=== PATIENT | female | born 1970 | race African-American/Black ===

== ENCOUNTER 2023-07-23 22:43 | Emergency (ER) | payer SELFPAY ==
[~2023-07-23] VITALS: Ht 167.6 cm; Wt 100.0 kg
[2023-07-23 22:44] VITALS: O2SAT 97
[2023-07-24 00:54] LABS: BASOPHILS % 0.4 % (0.0-2.0); EOSINOPHILS % 4.5 % (0.0-5.0); HEMATOCRIT. 37.4 % (36.0-48.0); LYMPHOCYTES % 39.3 % (20.0-50.0); MEAN CORPUSCULAR HEMOGLOBIN 26.6 pg (28.0-32.0); MEAN CORPUSCULAR HGB CONC 32.1 g/dL (31.0-37.0); MEAN CORPUSCULAR VOLUME 82.7 fL (81.0-99.0); MEAN PLATELET VOLUME 8.5 fl (7.4-10.4); MONOCYTES % 10.3 % (2.0-8.0); NEUTROPHILS % 45.5 % (40.0-76.0); PLATELET 228 x1000/uL (130-400); RED BLOOD CELL COUNT 4.52 mill/uL (4.2-5.4); RED CELL DISTRIBUTION WIDTH 13.6 % (11.6-14.6); WHITE BLOOD COUNT 5.6 x1000/uL (4.5-11.0)
[2023-07-24 01:07] LABS: CHLORIDE 111 mEq/L (98-107); INDEX HEMOLYSI 1 (1-3); INDEX ICTERIC 1 (1-4); INDEX LIPEMIC 1 (1-3); POTASSIUM 3.4 mEq/L (3.5-5.1); SODIUM 143 mEq/L (136-145)
[2023-07-24 01:14] LABS: AMMONIA 29 uMol/L (<32)
[2023-07-24] MEDS ORDERED: ACETAMINOPHEN 500MG TABLET PO NR (01:15)
[2023-07-24 01:16] LABS: ACETAMINOPHEN <2 ug/mL ug/mL (10-30); ALANINE AMINOTRANSFERASE 26 IU/L (13-61); ALBUMIN 3.8 g/dL (3.4-5.0); ASPARTATE AMINOTRANSFERASE 20 IU/L (15-37); BILIRUBIN TOTAL 0.1 mg/dL (0.1-1.0); CALCIUM 8.9 mg/dL (8.5-10.1); CARBON DIOXIDE 24 mEq/L (21-32); CREATININE 0.9 mg/dL (0.6-1.3); ETHANOL BLOOD 157 mg/dL (<10); GLUCOSE 93 mg/dL (70-105); LACTIC ACID 2.6 mmol/L (0.4-2.0); PROTEIN TOTAL 8.3 g/dL (6.0-8.3); UREA NITROGEN BLOOD 14 mg/dL (7-21)
[2023-07-24 05:39] LABS: CLARITY URINE CLOUDY (CLEAR); COLOR URINE YELLOW (YELLOW); PH URINE 5.5 (4.5-8.0); SPECIFIC GRAVITY URINE 1.014 (1.005-1.030)
[2023-07-24 05:40] LABS: GLUCOSE URINE NEGATIVE (NEGATIVE); KETONES URINE NEGATIVE (NEGATIVE); LEUKOCYTE ESTERASE URINE 2+ (NEGATIVE); NITRITE URINE NEGATIVE (NEGATIVE); OCCULT BLOOD URINE NEGATIVE (NEGATIVE); PROTEIN URINE NEGATIVE (NEGATIVE); UROBILINOGEN URINE 0.2 E.U./dL (0.2-1.0)
[2023-07-24 05:49] LABS: SQUAMOUS EPITHELIAL CELL URINE 1+ /lpf (RARE/1+)
[2023-07-24 05:51] LABS: RBC URINE 0-2 /hpf (0-2)
[2023-07-24 05:53] LABS: BACTERIA URINE 1+
[2023-07-24 05:58] LABS: *AMPHETAMINES SCREEN URINE NEGATIVE (NEGATIVE); *BARBITURATES SCREEN URINE NEGATIVE (NEGATIVE); *BENZODIAZEPINES SCREEN URINE NEGATIVE (NEGATIVE); *COCAINE SCREEN URINE NEGATIVE (NEGATIVE); CANNABINOID URINE SCREEN NEGATIVE (NEGATIVE); ECSTASY MDMA SCREEN URINE NEGATIVE (NEGATIVE); OPIATES URINE SCREEN NEGATIVE (NEGATIVE); PHENCYCLIDINE URINE SCREEN NEGATIVE (NEGATIVE)
[2023-07-24] MEDS ORDERED: KETOROLAC 15MG/ML VIAL IV ONE (06:00)
[2023-07-24] MEDS ORDERED: ONDANSETRON HCL 4MG/2ML INJ IV ONE (06:00)
[2023-07-24] MEDS ORDERED: KETOROLAC 30MG/ML VIAL IV NR (06:30)
[2023-07-24] MEDS ORDERED: ACETAMINOPHEN 325MG TABLET PO ONE ×2 (06:30→06:45)
[2023-07-24] MEDS ORDERED: CEPH500T MT (06:34)
[2023-07-24 09:19] VITALS: BP 133/56; PULSE 60; RESP 18; TEMP 97.7
== END 2023-07-24 09:29 | disposition home or self-care (01) ==
LOC: ER 22:43
DX: F10.129 Alcohol abuse with intoxication, unspecified (principal); N39.0 Urinary tract infection, site not specified; E11.9 Type 2 diabetes mellitus without complications; E78.00 Pure hypercholesterolemia, unspecified; Z98.890 Other specified postprocedural states; Y90.6 Blood alcohol level of 120-199 mg/100 ml
CPT/HCPCS: 82962 ×2; 36415; 99285; 80053; 80305; 81003; 80307; 80329; 80320; 82140; 83605; 85025; 70450; 96374; J1885 ×2; Z7610; G0480